=== PATIENT | male | born 1990 | race Caucasian/White ===

== ENCOUNTER 2019-06-19 12:32 | Emergency (ER) | payer SELFPAY ==
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
[2019-06-19 12:44] VITALS: BP 141/82; PULSE 96; RESP 16; TEMP 37.7; O2SAT 99
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
== END 2019-06-19 13:45 | disposition home or self-care (01) ==
PROVIDERS: Emergency Provider Nurse Practitioner Family
DX: S80.02XA Contusion of left knee, initial encounter (principal); V20.4XXA Motorcycle driver injured in collision with pedestrian or animal in traffic accident, initial encounter; S86.812A Strain of other muscle(s) and tendon(s) at lower leg level, left leg, initial encounter
CPT/HCPCS: 73564; 99213; G0463